=== PATIENT | female | born 1980 | race African-American/Black ===

== ENCOUNTER 2023-12-05 08:25 | Emergency (ER) | payer OTHER, SELFPAY ==
[2023-12-05 08:38] VITALS: BP 98/51; PULSE 66; RESP 18; TEMP 36.6; O2SAT 98; BMI 28.2
--- NOTE | 2023-12-05 08:43 | W.ED.GENADLT ---
HPI - General Adult General: Chief complaint: Weakness Stated complaint: Fell and hit head Time Seen by Provider: 12/05/23 08:26 History of Present Illness: 43-year-old female presents to the emergency room with complaints of having fallen and hit her head. She got up this morning she felt a little dizzy when she woke up she was going to the restroom and she fell. She does not really recall exactly why she fell. She has a history of SVT and is scheduled for an ablation next week for this. She has had episodes in the past where she had near syncope. She takes Ambien occasionally for sleep and Paxil for hot flashes. She states she usually does not have hangover like effect in the morning with her Ambien. She denies any other injury when she fell. Associated symptoms: Reports headache(s); Deny chest pain, dyspnea or rash Related Data Previous Rx's Medication Instructions Recorded ondansetron HCl 4 mg tablet 4 mg PO Q6H PRN nausea and 12/05/23 vomiting #20 tabs Allergies Allergy/AdvReac Type Severity Reaction Status Date / Time No Known Allergies Allergy Verified 12/05/23 08:45 Review of Systems Const: Denies: fever(s) or chills Card: Denies: chest pain Resp: Denies: dyspnea GI: Denies: abdominal pain : Denies: dysuria, urinary frequency or urinary urgency Musc: Denies: neck pain or back pain Skin/Breast: Denies: rash Neuro: Reports: headache(s) [facility] ED PFSH: Medical History H/O supraventricular tachycardia Physical Exam Const: COMMON NORMALS: no acute distress GENERAL APPEARANCE: cooperative and comfortable ORIENTATION/CONSCIOUSNESS: Yes awake, Yes oriented to person, Yes oriented to place and Yes oriented to time HENMT: COMMON NORMALS: normocephalic, atraumatic and hearing grossly normal bilaterally HEAD & SCALP: normocephalic and atraumatic OTHER: Tenderness in the left temporal region no skin breaks no abrasions no swelling Resp: COMMON NORMALS: normal respiratory effort, No retractions, No use of accessory muscles and clear to auscultation bilaterally AUSCULTATION: clear to auscultation bilaterally Cardio: COMMON NORMALS: regular rate, regular rhythm and No murmurs present (Cardio) RATE: regular rate RHYTHM: regular rhythm Extremity: COMMON NORMALS: normal to inspection, capillary refill normal, no clubbing, cyanosis or edema, no calf tenderness and no pedal edema Neuro: SENSORIUM/ORIENTATION: Yes oriented to person, Yes oriented to place and Yes oriented to time Skin: COMMON NORMALS: no rashes or lesions noted GENERAL SKIN EXAM: no rashes or lesions noted Course Vital Signs: Vital signs: Vital Signs Temperature 97.8 F 12/05/23 08:38 Pulse Rate 60 12/05/23 12:15 Respiratory Rate 14 12/05/23 09:42 Blood Pressure 102/68 12/05/23 12:15 Pulse Oximetry 100 12/05/23 12:15 Oxygen Delivery Me thod Room Air 12/05/23 11:00 MDM - General Adult Medical Decision Making CT head and neck are negative. Orthostatics were positive she is given IV fluids did feel some better had some nausea which was relieved by antiemetics. Patient has a history of SVT that relatively recently had increased her metoprolol. Was sometime last week and a half or so. I suspect when she got out of bed this morning her heart rate was suppressed she had an orthostatic event and had a near syncope from because of this and fell and hit her head. She remains somewhat bradycardic in the ER she has not had any SVT at all states she did not feel like she had an episode of SVT this morning. 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 Further recommend she decrease her metoprolol to half a tablet twice a day. Lab Data I reviewed the patient's lab results. 12/05/23 09:02 12/05/23 09:02 Radiology Impressions Cervical Spine CT 12/05/23 08:51 IMPRESSION: No acute bony abnormality. If symptoms persist, consider further evaluation with MRI, if MRI is clinically safe to obtain. Head CT 12/05/23 08:51 IMPRESSION: No acute intracranial abnormality. If symptoms persist, consider further evaluation with MRI, if MRI is clinically safe to obtain. Laboratory Results WBC 5.98 10^3/uL (3.29-11.43) 12/05/23 09:02 RBC 4.07 10^6/uL (3.85-5.65) 12/05/23 09:02 Hgb 12.40 g/dL (11.27-16.99) 12/05/23 09:02 Hct 39.2 % (36-47) 12/05/23 09:02 MCV 96.3 fl (85-98) 12/05/23 09:02 MCH 30.5 pg (27-33) 12/05/23 09:02 MCHC 31.6 g/dL (30-55) 12/05/23 09:02 RDW 12.4 % (12.1-15.1) 12/05/23 09:02 Plt Count 224 10^3/cmm (157-399) 12/05/23 09:02 MPV 9.3 fL (7.4-10.4) 12/05/23 09:02 Neut % (Auto) 53.5 % 12/05/23 09:02 Lymph % (Auto) 38.0 % 12/05/23 09:02 [place] % (Auto) 6.0 % 12/05/23 09:02 Eos % (Auto) 1.8 % 12/05/23 09:02 Baso % (Auto) 0.5 % 12/05/23 09:02 Neut # (Auto) 3.20 10^3/uL (1.8-7.7) 12/05/23 09:02 Lymph # (Auto) 2.3 10^3/uL (0.8-4.8) 12/05/23 09:02 [place] # (Auto) 0.4 10^3/uL (0.2-0.9) 12/05/23 09:02 Eos # (Auto) 0.1 10^3/uL (0.0-0.8) 12/05/23 09:02 Baso # (Auto) 0.0 10^3/uL (0.0-0.1) 12/05/23 09:02 Nucleated RBC % (auto) 0 % 12/05/23 09:02 Nucleated RBCs # 0.0 /100WBC 12/05/23 09:02 Sodium 139 mmol/L (136-145) 12/05/23 09:02 Potassium 4.0 mmol/L (3.5-5.1) 12/05/23 09:02 Chloride 105 mmol/L (98-107) 12/05/23 09:02 Carbon Dioxide 26 mmol/L (22-29) 12/05/23 09:02 Anion Gap 12.0 (5-19) 12/05/23 09:02 BUN 11 mg/dL (6-20) 12/05/23 09:02 Creatinine 1.1 mg/dL (0.5-0.9) H 12/05/23 09:02 GFR Calculation 65.3 mL/min (90-130) L 12/05/23 09:02 Glucose 71 mg/dL (65-115) 12/05/23 09:02 Calculated Osmolality 286 mOsm/kg (285-295) 12/05/23 09:02 Calcium 9.2 mg/dL (8.5-10.5) 12/05/23 09:02 Total Bilirubin 0.4 mg/dL (0.15-1.2) 12/05/23 09:02 AST 25 U/L (0-32) 12/05/23 09:02 ALT 14 U/L (0-33) 12/05/23 09:02 Alkaline Phosphatase 97 U/L (35-105) 12/05/23 09:02 Total Protein 7.2 g/dL (6.6-8.7) 12/05/23 09:02 Albumin 4.4 g/dL (3.5-5.2) 12/05/23 09:02 Globulin 2.8 g/dL (1.3-4.6) 12/05/23 09:02 All radiology interpretation(s) finalized by discharge Discharge Plan Discharge Patient Disposition: Home Clinical Impression: Near syncope, H/O supraventricular tachycardia Condition: Stable Prescriptions: New ondansetron HCl 4 mg tablet 4 mg PO Q6H PRN (Reason: nausea and vomiting) Qty: 20 0RF Discharge Orders: Discharge ED (Routine); Ordered 12/05/23 Ordered By: Jayjay Kline Patient Instructions: Opioid Safety, Pain Management Activity Restrictions/Additional Instructions: Thank you for choosing [facility] [place] for your healthcare needs today. It is very important that you follow up as instructed or that you return to the Emergency Department should you have concerns or if your condition changes or worsens in any way. You are seen in the emergency room after a near syncopal episode and a fall. Scan of your head and neck were negative. Your laboratory tests and vital signs were normal. You do have some mild bradycardia which is likely result of your medication. Based on the exam and findings in the emergency room and suspect that this episode was precipitated by low heart rate and blood pressure from your medications. Would recommend that you decrease your metoprolol dose to a half of a tablet twice a day and follow-up with your doctor as soon as you are able. You were also given a prescription for nausea medicine to take as needed for your trip home today. Coding Level of Care Code ED Roast Master for Karri Carey
--- NOTE | 2023-12-05 08:51 | CTR_ITS ---
PROCEDURE INFORMATION: Exam: CT Cervical Spine Without Contrast Exam date and time: 12/05/2023 9:02 AM Age: 43 years old Clinical indication: Injury or trauma; Fall; Blunt trauma TECHNIQUE: Imaging protocol: Computed tomography of the cervical spine without contrast. Radiation optimization: All CT scans at this facility use at least one of these dose optimization techniques: automated exposure control; mA and/or kV adjustment per patient size (includes targeted exams where dose is matched to clinical indication); or iterative reconstruction. COMPARISON: None RADIATION DOSE METRICS: Total DLP (mGy-cm): 1116.7 FINDINGS: Bones/joints: The cervical vertebral body heights are maintained. Normal alignment. C2-C3: No significant disc bulge or herniation. No severe spinal canal stenosis. No significant neuroforaminal narrowing. C3-C4: No significant disc bulge or herniation. No severe spinal canal stenosis. No significant neuroforaminal narrowing. C4-C5: Right paracentral disc osteophyte complex with mild central canal stenosis. No significant neuroforaminal narrowing. C5-C6: No significant disc bulge or herniation. No severe spinal canal stenosis. No significant neuroforaminal narrowing. C6-C7: No significant disc bulge or herniation. No severe spinal canal stenosis. No significant neuroforaminal narrowing. C7-T1: No significant disc bulge or herniation. No severe spinal canal stenosis. No significant neuroforaminal narrowing. Lungs: Lung apices are normal. Soft tissues: Visualized soft tissues are unremarkable. CT/CT cervical spin wo con* [id number] IMPRESSION: No acute bony abnormality. If symptoms persist, consider further evaluation with MRI, if MRI is clinically safe to obtain.
--- NOTE | 2023-12-05 08:51 | CTR_ITS ---
PROCEDURE INFORMATION: Exam: CT Head Without Contrast Exam date and time: 12/05/2023 9:02 AM Age: 43 years old Clinical indication: Injury or trauma; Fall; Blunt trauma (contusions or hematomas) TECHNIQUE: Imaging protocol: Computed tomography of the head without contrast. Radiation optimization: All CT scans at this facility use at least one of these dose optimization techniques: automated exposure control; mA and/or kV adjustment per patient size (includes targeted exams where dose is matched to clinical indication); or iterative reconstruction. COMPARISON: CT cervical spin wo con* [id number] 12/05/2023 9:02 AM RADIATION DOSE METRICS: Total DLP (mGy-cm): 1186.8 FINDINGS: Brain: No acute intracranial hemorrhage. No confluent lobar infarct. No mass effect. Cerebral ventricles: The ventricles and sulci are normal in size and shape for the patient's stated age. Paranasal sinuses: No fluid levels. Mastoid air cells: Visualized mastoid air cells are well aerated. Bones: No acute calvarial fracture. Prior suboccipital craniectomy. Recommend correlation with surgical history. Soft tissues: Visualized soft tissues are unremarkable. CT/CT head wo con* [id number] IMPRESSION: No acute intracranial abnormality. If symptoms persist, consider further evaluation with MRI, if MRI is clinically safe to obtain.
--- NOTE | 2023-12-05 09:37 | ECG_ITS ---
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 Measurements Intervals [place] Rate: 56 P: 54 UT: 143 QRS: 81 QRSD: 78 T: 83 QT: 413 QTc: 402 Interpretive Statements SINUS BRADYCARDIA No previous ECG available for comparison Electronically Signed On 12-05-2023 21:02:05 CDT by Bill Wade M.D. [id number]
[2023-12-05 09:42] VITALS: PULSE 59; RESP 14; O2SAT 100
[2023-12-05 10:06] LABS: Basophils % 0.5 %; Eosinophils # 0.1 10^3/uL (0.0-0.8); Eosinophils % 1.8 %; Hematocrit 39.2 % (36-47); Lymphocytes # 2.3 10^3/uL (0.8-4.8); Mean Corpuscular HGB Conc 31.6 g/dL (30-55); Mean Corpuscular Hemoglobin 30.5 pg (27-33); Mean Corpuscular Volume 96.3 fl (85-98); Mean Platelet Volume 9.3 fL (7.4-10.4); Monocytes # 0.4 10^3/uL (0.2-0.9); Neutrophils % 53.5 %; Nucleated Red Blood Cells % 0 %; Platelet Count 224 10^3/cmm (157-399); Red Blood Count 4.07 10^6/uL (3.85-5.65); Red Cell Distribution Width 12.4 % (12.1-15.1); White Blood Count 5.98 10^3/uL (3.29-11.43)
[2023-12-05] MEDS: sodium chloride 0.9% 1,000 ML 999 ML IV (10:11)
[2023-12-05 10:17] LABS: Alanine Aminotransferase 14 U/L (0-33); Albumin Level 4.4 g/dL (3.5-5.2); Alkaline Phosphatase 97 U/L (35-105); Blood Urea Nitrogen 11 mg/dL (6-20); Calcium 9.2 mg/dL (8.5-10.5); Carbon Dioxide 26 mmol/L (22-29); Chloride 105 mmol/L (98-107); Creatinine Clr Calc Pharmacy 86.6151; Globulin 2.8 g/dL (1.3-4.6); Glomerular Filtration Rate 65.3 mL/min (90-130); Glucose 71 mg/dL (65-115); Osmolality Calculated 286 mOsm/kg (285-295); Sodium 139 mmol/L (136-145); Total Bilirubin 0.4 mg/dL (0.15-1.2); Total Protein 7.2 g/dL (6.6-8.7)
[2023-12-05 10:19] LABS: Aspartate Amino Transferase 25 U/L (0-32)
[2023-12-05] MEDS: ketorolac 30 mg/mL INJ IVP (10:24)
[2023-12-05 11:00] VITALS: BP 115/71; BP 95/68; BP 99/60; PULSE 63; PULSE 66; PULSE 67; O2SAT 98
[2023-12-05] MEDS: ondansetron 2 mg/ML SDV 2 mL 4 MG IVP (11:26)
--- NOTE | 2023-12-05 11:27 | PC.NURSE ---
pt ambulated to bathroom outside room, states she felt better upon standing; denied feeling dizzy. post ambulation pt states she felt bad , c/o nausea; see MAR.
[2023-12-05 12:00] VITALS: BP 102/68; PULSE 58; O2SAT 100
[2023-12-05 12:15] VITALS: BP 102/68; PULSE 60; O2SAT 100
== END 2023-12-05 12:27 | disposition home or self-care (01) ==
PROVIDERS: Emergency Provider Family Medicine
DX: R55 Syncope and collapse (principal); I47.10 Supraventricular tachycardia, unspecified
CPT/HCPCS: 70450; 72125; 80053; 85025; 93005; 96361; 96374; 96375; 99285; J1885; J2405; J7030